=== PATIENT | male | born 1960 | race American Indian/Alaskan Native ===

== ENCOUNTER 2018-01-14 13:08 | Emergency (ER) | payer OTHER ==
[2018-01-14 14:00] LABS: Basophils # (Auto) 0.1 K/mm3 (0.0-0.1); Basophils % (Auto) 1.2 % (0.0-1.8); Eosinophils # (Auto) 0.3 K/mm3 (0.0-0.4); Eosinophils % (Auto) 4.9 % (0.0-4.3); Hemoglobin 12.3 gm/dl (11.8-15.2); Lymphocytes # (Auto) 2.5 K/mm3 (1.2-5.4); Lymphocytes % (Auto) 37.2 % (13.4-35.0); Mean Corpuscular HGB Conc 32 % (32-34); Mean Corpuscular Volume 74 fl (84-94); Monocytes # (Auto) 0.5 K/mm3 (0.0-0.8); Monocytes % (Auto) 7.4 % (0.0-7.3); Platelet Count 203 K/mm3 (140-440); Red Blood Count 5.27 M/mm3 (3.65-5.03); Red Cell Distribution Width 14.8 % (13.2-15.2)
[2018-01-14 14:02] LABS: Mean Corpuscular Hemoglobin 23 pg (28-32)
--- NOTE | 2018-01-14 14:04 | Cat Scan Report ---
FINAL REPORT EXAM: CT HEAD/BRAIN WO CON HISTORY: HTN, slurred speech and weakness there is a sub appended mole hyper density at the left lateral aspect of the 3rd ventricle TECHNIQUE: CT of the head was performed. No intravenous contrast was administered. PRIORS: None. FINDINGS: There is an 8 mm hyperdensity in the subependymal medial margin of the left thalamus. This is concerning for a focal small hemorrhage. There is an old lacunar infarct in left of midline arthur. There is no edema, mass effect or midline shift. There are no abnormal extra-axial fluid collections. There is no ventricular enlargement seen. There is no skull fracture seen. The visualized aspects of the sinuses are clear. IMPRESSION: Findings are suspicious for an 8 mm hemorrhage in the subependymal medial margin of left thalamus.
[2018-01-14 14:11] LABS: INR 0.9 (0.87-1.13)
[2018-01-14 14:12] LABS: Partial Thromboplastin Time 25.6 Sec. (24.2-36.6)
[2018-01-14 14:27] LABS: BUN/Creatinine Ratio 14; Blood Urea Nitrogen 11 mg/dL (9-20); Calcium 8.9 mg/dL (8.4-10.2); Hemolysis Index 51
--- NOTE | 2018-01-14 15:29 | Emergency Department Report ---
ED Neuro Deficit HPI - General Chief Complaint: Neuro Symptoms/Deficit Stated Complaint: HIGH BLOOD PRESSURE Time Seen by Provider: 01/14/18 13:44 Source: patient, family, old records reviewed Mode of arrival: Ambulatory Limitations: No Limitations - History of Present Illness Initial Comments: Mr. Castro is a 57-year-old male with history of [id number] diabetes and hypertension who presents with stroke symptoms for the past 2 weeks. He's had slurred speech and difficulty finding words. Denies paralysis. Denies sensory abnormalities. Denies difficulty with ambulation. His current physician Dr. Fuentes obtained outpatient MRI on 12/26/1727 which showed evidence of acute infarct in the posterior limb of the left internal capsule. Due to persistently elevated blood pressure, his urged him to see his primary care physician today. Dr. Fuentes referred patient to the ER for persistent stroke symptoms and abnormal MRI. -: Sudden, week(s) (2) Location: dysarthria History of same: No Severity: mild Improves With: none Worsens With: none Context: sudden onset Associated Symptoms: other (difficulty finding words) - Related Data Allergies/Adverse Reactions: Allergies Allergy/AdvReac Type Severity Reaction Status Date / Time No Known Allergies Allergy Unverified 01/14/18 13:17 ED Review of Systems ROS: Stated complaint: HIGH BLOOD PRESSURE Other details as noted in HPI Comment: All other systems reviewed and negative Constitutional: denies: fever, malaise Respiratory: denies: cough Cardiovascular: denies: chest pain, palpitations ED Past Medical Hx - Past Medical History Hx Hypertension: Yes Hx Diabetes: Yes - Social History Smoking Status: Never Smoker Substance Use Type: Prescribed Other Social History: , is bedside, 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 Absent: scleral icterus, conjunctival injection - ENT ENT exam: Present: mucous membranes moist - Neck Neck exam: Present: normal inspection. Absent: tenderness, meningismus - Respiratory Respiratory exam: Present: normal lung sounds bilaterally. Absent: respiratory distress, wheezes, rales, rhonchi - Cardiovascular Cardiovascular Exam: Present: regular rate, normal rhythm, normal heart sounds. Absent: systolic murmur, diastolic murmur, rubs, gallop - GI/Abdominal GI/Abdominal exam: Present: soft, normal bowel sounds. Absent: distended, tenderness, guarding, rebound - Rectal Rectal exam: Present: deferred - Extremities Exam Extremities exam: Present: normal capillary refill, pedal edema - Back Exam Back exam: Present: normal inspection - Neurological Exam Neurological exam: Present: alert, oriented X3 - NIHSS Assessment Interval: Baseline 1a. Level of Consciousness: alert 1b. LOC Questions: answers correctly 1c. LOC Commands: performs tasks correctly 2. Best Gaze: normal 3. Visual: no visual loss 4. Facial Palsy: normal symmetrical movement 5b. Motor Arm Right: no drift 5a. Motor Arm Left: no drift 6a. Motor Leg Left: no drift 6b. Motor Leg Right: no drift 7. Limb Ataxia: absent 8. Sensory: normal 9. Best Language: no aphasia 10. Dysarthria: mild/moderate dysarthria 11. Extinction/Inattention: no abnormality Total Score: 1 Stroke Severity: Minor Stroke - Psychiatric Psychiatric exam: Present: normal affect, normal mood - Skin Skin exam: Present: warm, dry, intact, other (venous stasis changes in lower extremity with bilateral lower extremity edema). Absent: rash ED Course Vital Signs 01/14/18 13:17 Temperature 98 F Pulse Rate 67 Respiratory 18 Rate Blood Pressure 177/100 Blood Pressure 177/100 [Right] O2 Sat by Pulse 99 Oximetry - Lab Data Result diagrams: 01/14/18 13:46 01/14/18 13:46 Lab Results 01/14/18 01/14/18 01/14/18 Range/Units 13:46 13:46 13:46 WBC 6.7 (4.5-11.0) K/mm3 RBC 5.27 H (3.65-5.03) M/mm3 Hgb 12.3 (11.8-15.2) gm/dl Hct 39.0 (35.5-45.6) % MCV 74 L (84-94) fl MCH 23 L (28-32) pg MCHC 32 (32-34) % RDW 14.8 (13.2-15.2) % Plt Count 203 (140-440) K/mm3 Lymph % (Auto) 37.2 H (13.4-35.0) % [place] % (Auto) 7.4 H (0.0-7.3) % Eos % (Auto) 4.9 H (0.0-4.3) % Baso % (Auto) 1.2 (0.0-1.8) % Lymph # 2.5 (1.2-5.4) K/mm3 [place] # 0.5 (0.0-0.8) K/mm3 Eos # 0.3 (0.0-0.4) K/mm3 Baso # 0.1 (0.0-0.1) K/mm3 Seg Neutrophils % 49.3 (40.0-70.0) % Seg Neutrophils # 3.3 (1.8-7.7) K/mm3 PT 12.6 (12.2-14.9) Sec. INR 0.90 (0.87-1.13) APTT 25.6 (24.2-36.6) Sec. Thrombin Time (15.1-19.6) Sec. Sodium 138 (137-145) mmol/L Potassium 3.4 L (3.6-5.0) mmol/L Chloride 96.1 L (98-107) mmol/L Carbon Dioxide 26 (22-30) mmol/L Anion Gap 19 mmol/L BUN 11 (9-20) mg/dL Creatinine 0.8 (0.8-1.5) mg/dL Estimated GFR > 60 ml/min BUN/Creatinine Ratio 14 % Glucose 194 H (75-100) mg/dL Calcium 8.9 (8.4-10.2) mg/dL Troponin T < 0.010 (0.00-0.029) ng/mL 01/14/18 Range/Units 13:46 WBC (4.5-11.0) K/mm3 RBC (3.65-5.03) M/mm3 Hgb (11.8-15.2) gm/dl Hct (35.5-45.6) % MCV (84-94) fl MCH (28-32) pg MCHC (32-34) % RDW (13.2-15.2) % Plt Count (140-440) K/mm3 Lymph % (Auto) (13.4-35.0) % [place] % (Auto) (0.0-7.3) % Eos % (Auto) (0.0-4.3) % Baso % (Auto) (0.0-1.8) % Lymph # (1.2-5.4) K/mm3 [place] # (0.0-0.8) K/mm3 Eos # (0.0-0.4) K/mm3 Baso # (0.0-0.1) K/mm3 Seg Neutrophils % (40.0-70.0) % Seg Neutrophils # (1.8-7.7) K/mm3 PT (12.2-14.9) Sec. INR (0.87-1.13) APTT (24.2-36.6) Sec. Thrombin Time 17.1 (15.1-19.6) Sec. Sodium (137-145) mmol/L Potassium (3.6-5.0) mmol/L Chloride (98-107) mmol/L Carbon Dioxide (22-30) mmol/L Anion Gap mmol/L BUN (9-20) mg/dL Creatinine (0.8-1.5) mg/dL Estimated GFR ml/min BUN/Creatinine Ratio % Glucose (75-100) mg/dL Calcium (8.4-10.2) mg/dL Troponin T (0.00-0.029) ng/mL - EKG Data EKG shows normal: sinus rhythm, axis, intervals, QRS complexes Interpretation: LVH 01/14/18 15:30 EKG obtained at 1328 Normal sinus rhythm premature atrial contraction present rate 60 beats a minute normal axis and prolonged NC interval 01/14/18 15:33 - Radiology Data Radiology results: report reviewed 8 mm intraparenchymal hemorrhage at the left thalamus - Medical Decision Making Mr. Castro presents with 2 weeks of speech difficulty, dysarthria and aphasia. MRI confirmed acute infarct at left internal capsule. Today, hemorrhagic conversion seen on CT of head. Dr. Navarro neurointensivist accepted patient to 31 ICU at [facility]. Dr. Navarro recommended to maintain SBP 160-180 mm Hg. I spoke extensively with and patient. mobile [phone] - Thrombolytic Inclusion/Exclusion Thrombolytic Exclusion Criteria: Symptom Onset > 3 Hours Thrombolytic Contraindications: Hx of ICH/AVM/Aneurysms Critical Care Time: Yes Critical care time in (mins) excluding proc time.: 40 Critical care attestation.: If time is entered above; I have spent that time in minutes in the direct care of this critically ill patient, excluding procedure time. ED Disposition Clinical Impression: Hemorrhagic cerebrovascular accident (CVA) Disposition: DC/TX-70 ANOTHER TYPE HLTHCARE Is pt being admited?: No Does the pt Need Aspirin: No Condition: Stable Referrals: PRIMARY CARE,MD [Primary Care Provider] - 3-5 Days Time of Disposition: 15:00
[2018-01-14 16:49] VITALS: BP 171/97
== END 2018-01-14 17:15 | disposition other institution (70) ==
LOC: ED 13:08
DX: I63.9 Cerebral infarction, unspecified (principal); I10 Essential (primary) hypertension; E11.9 Type 2 diabetes mellitus without complications
CPT/HCPCS: 36415; 70450; 80048; 84484; 85025; 85610; 85670; 85730; 93005; 93010

== ENCOUNTER 2018-02-23 11:17 | Emergency (ER) | payer OTHER ==
[2018-02-23 11:34] VITALS: BP 138/87
--- NOTE | 2018-02-23 12:05 | Emergency Department Report ---
ED Medical Clearance HPI - General Chief complaint: Medical Clearance Stated complaint: REFILL MEDICATION Time Seen by Provider: 02/23/18 11:56 Source: patient, RN notes reviewed Mode of arrival: Ambulatory Limitations: No Limitations - History of Present Illness Initial comments: This is a 57-year-old gentleman who presents to the ER with a request for medication refill. Please see triage documentation as to which medications the patient requested to have refilled. He indicates he is going to follow-up with his outpatient neurologist/primary care doctor within the next week. He denies all complaints at this time. MD Complaint: other Alledged Intoxication: No Compliant with Home Medications: Yes Traumatic Symptoms: denies traumatic injury Associated Symptoms: denies: chest pain, shortness of breath, palpitations, diaphoresis, confusion, cough, fever/chills, headaches, anorexia, malaise, nausea/vomiting, rash, seizure, syncope, weakness Home medications: Previous Rx's Medication Instructions Recorded Last Taken Type Atorvastatin [Lipitor] 80 mg PO QHS #30 tab 02/23/18 Unknown Rx Chlorthalidone 50 mg PO QDAY #30 tablet 02/23/18 Unknown Rx Potassium Chloride 20 meq PO BID #28 packet 02/23/18 Unknown Rx Allergies/Adverse reactions: Allergies Allergy/AdvReac Type Severity Reaction Status Date / Time No Known Allergies Allergy Unverified 01/14/18 13:17 ED Review of Systems ROS: Stated complaint: REFILL MEDICATION Other details as noted in HPI Comment: All other systems reviewed and negative ED Past Medical Hx - Past Medical History Hx Hypertension: Yes Hx Diabetes: Yes - Social History Smoking Status: Never Smoker Substance Use Type: None - Medications Home Medications: Home Medications Medication Instructions Recorded Confirmed Last Taken Type Atorvastatin [Lipitor] 80 mg PO QHS #30 tab 02/23/18 Unknown Rx Chlorthalidone 50 mg PO QDAY #30 tablet 02/23/18 Unknown Rx Potassium Chloride 20 meq PO BID #28 packet 02/23/18 Unknown Rx ED Physical Exam - General Limitations: No Limitations General appearance: alert, in no apparent distress - Head Head exam: Present: atraumatic, normocephalic - Eye Eye exam: Present: normal appearance, EOMI. Absent: nystagmus - ENT ENT exam: Present: normal exam, normal orophraynx, mucous membranes moist - Neck Neck exam: Present: normal inspection, full ROM. Absent: tenderness, meningismus - Respiratory Respiratory exam: Present: normal lung sounds bilaterally. Absent: respiratory distress - Cardiovascular Cardiovascular Exam: Present: regular rate, normal rhythm, normal heart sounds. Absent: bradycardia, tachycardia, irregular rhythm, systolic murmur, diastolic murmur, rubs, gallop - GI/Abdominal GI/Abdominal exam: Present: soft, normal bowel sounds. Absent: distended, tenderness, guarding, rebound, rigid, pulsatile mass - Rectal Rectal exam: Present: deferred - Extremities Exam Extremities exam: Present: normal inspection, full ROM - Back Exam Back exam: Present: normal inspection, full ROM. Absent: CVA tenderness (R), paraspinal tenderness, vertebral tenderness - Neurological Exam Neurological exam: Present: alert (residual slurred speech from stroke earlier on last month), oriented X3, other (Extraocular movements intact. Tongue midline. No facial droop. Facial sensation intact to light touch in the V1, V2 , V3 distribution bilaterally. 5 and 5 strength in 4 extremities.. Sensation is intact to light touch in 4 extremities.). Absent: motor sensory deficit - Psychiatric Psychiatric exam: Present: normal affect, normal mood - Skin Skin exam: Present: warm, dry, intact ED Course Vital Signs 02/23/18 11:29 Temperature 98.2 F Pulse Rate 76 Respiratory 16 Rate Blood Pressure 138/87 O2 Sat by Pulse 99 Oximetry ED Medical Decision Making - Lab Data Vital Signs 02/23/18 11:29 Temperature 98.2 F Pulse Rate 76 Respiratory 16 Rate Blood Pressure 138/87 O2 Sat by Pulse 99 Oximetry - Medical Decision Making Differential diagnosis, including not limited to: Medication refill, history of stroke Assessment and plan: 57-year-old gentleman who has no complaints, who reports being discharged from the hospital a few weeks ago for stroke with some residual dysarthria, who requests a medication refill. He is going to follow up with neurology next week. He has no complaints at this time. His medications will be refilled. He will be discharged at this time ED Disposition Clinical Impression: Medication refill Disposition: DC-01 TO HOME OR SELFCARE Is pt being admited?: No Does the pt Need Aspirin: No Condition: Stable Instructions: Self Care Measures After a Stroke (ED) Additional Instructions: Take the medications as directed. Follow up with a primary care doctor or neurology specialist within the next week as recommended. Side effects of the atorvastatin includes muscle cramps and liver injury. The addition, the patient 's potassium has been refilled for 2 weeks, but should have a reevaluation by either her primary care doctor or neurology specialist to determine long-term necessity of this medication. Return to the ER right away with new pain, worsened pain, migration of pain, fevers, chills, confusion, inability to tolerate liquid feeds. On the other 2 medications, the patient was given a one-month prescription, with an additional refill. Prescriptions: Atorvastatin [Lipitor] 80 mg PO QHS #30 tab Chlorthalidone 50 mg PO QDAY #30 tablet Potassium Chloride 20 meq PO BID #28 packet Referrals: ALBERT AVENDAÑO MD [Referring] - 3-5 Days MEHDI MUHAMMAD MD [Staff Physician] - 3-5 Days MEGHA GAMEZ MD [Staff Physician] - 3-5 Days [facility] [Provider Group] - 3-5 Days
== END 2018-02-23 12:05 | disposition home or self-care (01) ==
LOC: ED 11:17
DX: I63.9 Cerebral infarction, unspecified (principal); Z76.0 Encounter for issue of repeat prescription; I10 Essential (primary) hypertension; E11.9 Type 2 diabetes mellitus without complications
CPT/HCPCS: 99282

== ENCOUNTER 2018-09-05 10:32 | Emergency (ER) | payer OTHER ==
--- NOTE | 2018-09-05 11:28 | Emergency Department Report ---
Blank Doc - Documentation Documentation: This is a 58-year-old male that presents with constipation x2 weeks. Stated u nable to have a bowel movement since then. Denies any abdominal pain. Stated pain is in the anus region. This initial assessment diagnostic orders/clinical plan/treatment(s) is/are subject to change based on patient's health status, clinical progression and re- assessment by fellow clinical providers in the ED. Further treatment and workup at subsequent clinical providers discretion. Patient/guardians urged not to elope from ED s their condition may be serious if not clinically assessed and managed. Initial orders include: 1-Patient sent to [facility] for further evaluation and treatment 2- Labs 3- XR abd
--- NOTE | 2018-09-05 11:51 | XRay Report ---
ABDOMINAL SERIES: History: Constipation. Supine and upright views of the abdomen and frontal view of the chest are submitted. There is gas mixed with moderate stool throughout the colon. There are no dilated loops of bowel or air-fluid levels. There is no free intraperitoneal gas. The lungs are clear. IMPRESSION: Fecal retention.
[2018-09-05] MEDS ORDERED: CITRATE OF MAGNESIA PO ONE (12:15)
[2018-09-05] MEDS ORDERED: FLEET MINERAL OIL PR ONE (12:15)
--- NOTE | 2018-09-05 12:17 | Emergency Department Report ---
ED Abdominal Pain HPI - General Chief Complaint: Abdominal Pain Stated Complaint: CONSTIPATION Time Seen by Provider: 09/05/18 11:26 Source: patient Mode of arrival: Ambulatory Limitations: No Limitations - History of Present Illness Initial Comments: Pt is a 58 yo AA male who comes to the ER co no BM in 2 weeks. Pt is eating a snickers bar as I enter the room. He has no abd pain. He has no nausea or vomiting. VSS Poor informant Daughter coming to get patient. -: Gradual, week(s) Migration to: no migration Severity scale (0 -10): 8 Improves With: nothing Worsens With: nothing Associated Symptoms: denies other symptoms - Related Data Previous Rx's Medication Instructions Recorded Last Taken Type Docusate Sodium [Colace] 100 mg PO BID #60 capsule 09/05/18 Unknown Rx Allergies Allergy/AdvReac Type Severity Reaction Status Date / Time No Known Allergies Allergy Verified 09/05/18 10:40 ED Review of Systems ROS: Stated complaint: CONSTIPATION Other details as noted in HPI Comment: All other systems reviewed and negative Constitutional: denies: chills Eyes: denies: eye pain ENT: denies: ear pain Respiratory: denies: cough Cardiovascular: denies: chest pain, orthopnea Endocrine: denies: excessive sweating Gastrointestinal: as per HPI, constipation. denies: abdominal pain, nausea, vomiting, diarrhea, hematemesis Genitourinary: denies: urgency, dysuria Musculoskeletal: denies: back pain Skin: denies: rash Neurological: denies: as per HPI Psychiatric: denies: as per HPI, anxiety ED Past Medical Hx - Past Medical History Previous Medical History?: Yes Hx Hypertension: Yes Hx CVA: Yes Hx Heart Attack/AMI: No Hx Congestive Heart Failure: No Hx Diabetes: Yes - Family History Family history: no significant - Social History Smoking Status: Never Smoker Substance Use Type: None - Medications Home Medications: Home Medications Medication Instructions Recorded Confirmed Last Taken Type Docusate Sodium [Colace] 100 mg PO BID #60 capsule 09/05/18 Unknown Rx ED Physical Exam - General Limitations: No Limitations General appearance: alert, in no apparent distress - Head Head exam: Present: atraumatic - Eye Eye exam: Present: normal appearance, PERRL - ENT ENT exam: Present: mucous membranes moist - Neck Neck exam: Present: normal inspection - Respiratory Respiratory exam: Present: normal lung sounds bilaterally - Cardiovascular Cardiovascular Exam: Present: regular rate - GI/Abdominal GI/Abdominal exam: Present: soft, normal bowel sounds. Absent: distended, tenderness, guarding, rebound, rigid, diminished bowel sounds, hyperactive bowel sounds, hypoactive bowel sounds, organomegaly, mass, bruit, pulsatile mass, hernia - Rectal Rectal exam: Present: deferred - Extremities Exam Extremities exam: Present: normal inspection, full ROM - Back Exam Back exam: Present: normal inspection, full ROM - Neurological Exam Neurological exam: Present: alert, oriented X3, normal gait - Psychiatric Psychiatric exam: Present: normal affect, normal mood - Skin Skin exam: Present: warm, dry, intact ED Course Vital Signs 09/05/18 11:26 Temperature 98.6 F Pulse Rate 79 Respiratory 18 Rate Blood Pressure 145/82 O2 Sat by Pulse 99 Oximetry - Reevaluation(s) Reevaluation #1: 09/05/18 13:31 pt denies pain meds ED Medical Decision Making - Lab Data Result diagrams: 09/05/18 12:31 09/05/18 12:31 - Radiology Data Radiology results: report reviewed, image reviewed constipation - Medical Decision Making pt is eating a snickers bar on initial exam xray noted pt given enema and mg citrate discussed high fiber diet and hydration with pt will dc home on colace and recommended dietary changes ambulatory VSS NAD Labs 09/05/18 09/05/18 12:31 12:31 WBC 6.0 RBC 4.62 Hgb 10.5 L Hct 32.4 L MCV 70 L MCH 23 L MCHC 33 RDW 19.0 H Plt Count 267 Lymph % (Auto) 21.2 [place] % (Auto) 7.2 Eos % (Auto) 1.0 Baso % (Auto) 1.0 Lymph # 1.3 [place] # 0.4 Eos # 0.1 Baso # 0.1 Seg Neutrophils % 69.6 Seg Neutrophils # 4.2 Sodium 138 Potassium 4.2 Chloride 97.0 L Carbon Dioxide 27 Anion Gap 18 BUN 20 Creatinine 1.1 Estimated GFR > 60 BUN/Creatinine Ratio 18 Glucose 132 H Calcium 10.0 Total Bilirubin 0.40 AST 12 ALT 12 Alkaline Phosphatase 51 Total Protein 8.3 H Albumin 4.4 Albumin/Globulin Ratio 1.1 Critical care attestation.: If time is entered above; I have spent that time in minutes in the direct care of this critically ill patient, excluding procedure time. ED Disposition Clinical Impression: Constipation Disposition: DC-01 TO HOME OR SELFCARE Is pt being admited?: No Does the pt Need Aspirin: No Condition: Stable Instructions: Constipation (ED), High Fiber Diet (ED) Additional Instructions: hydrate well with water high fiber diet avoid junk food and foods that tend to constipate you. continue home meds activity as tolerated med as ordered today over the counter miralax may help when constipated Prescriptions: Docusate Sodium [Colace] 100 mg PO BID #60 capsule Referrals: SOILA ALLEN [Primary Care Provider] - 3-5 Days Time of Disposition: 13:14
[2018-09-05 12:50] LABS: Basophils # (Auto) 0.1 K/mm3 (0.0-0.1); Eosinophils # (Auto) 0.1 K/mm3 (0.0-0.4); Hematocrit 32.4 % (35.5-45.6); Hemoglobin 10.5 gm/dl (11.8-15.2); Lymphocytes # (Auto) 1.3 K/mm3 (1.2-5.4); Lymphocytes % (Auto) 21.2 % (13.4-35.0); Mean Corpuscular HGB Conc 33 % (32-34); Mean Corpuscular Volume 70 fl (84-94); Monocytes # (Auto) 0.4 K/mm3 (0.0-0.8); Monocytes % (Auto) 7.2 % (0.0-7.3); Platelet Count 267 K/mm3 (140-440); Red Blood Count 4.62 M/mm3 (3.65-5.03)
[2018-09-05 13:07] LABS: Alanine Aminotransferase 12 units/L (7-56); Albumin 4.4 g/dL (3.9-5); BUN/Creatinine Ratio 18; Blood Urea Nitrogen 20 mg/dL (9-20); Hemolysis Index 2
[2018-09-05 14:20] VITALS: BP 136/76
== END 2018-09-05 13:32 | disposition home or self-care (01) ==
LOC: ED 10:32
DX: K59.00 Constipation, unspecified (principal); I10 Essential (primary) hypertension; E11.9 Type 2 diabetes mellitus without complications; Z86.73 Personal history of transient ischemic attack (TIA), and cerebral infarction without residual deficits
CPT/HCPCS: 36415; 74022; 80053; 85025

== ENCOUNTER 2019-01-06 14:34 | Outpatient (CLI) | payer OTHER ==
--- NOTE | 2019-01-06 15:46 | Vascular Lab Report ---
PROCEDURE: US BILATERAL LOWER EXTREMITY VENOUS DUPLEX DOPPLER TECHNIQUE: Duplex Doppler ultrasound of the BILATERAL common and superficial femoral, popliteal, pos terior tibial and proximal deep femoral and greater saphenous veins was attempted. Mendez scale imaging with and without compression, spectral waveform analysis with and without augmentation, and color fl ow Doppler were employed. CPT 55680 HISTORY: Lower extremity swelling COMPARISONS: None . FINDINGS: RIGHT LOWER EXTREMITY: Deep Venous Thrombus: None . Superficial Venous Thrombus: None . Venous valvular incompetence: None . Soft tissue abnormality: Mild subcutaneous edema visualized. . Nonspecific benign-appearing lymph no robi seen in the right groin with fat density centers. Other: None . LEFT LOWER EXTREMITY: Deep Venous Thrombus: None . Superficial Venous Thrombus: None . Venous valvular incompetence: None . Soft tissue abnormality: Mild subcutaneous edema visualized. . Other: None . IMPRESSION: No evidence of deep venous thrombosis . Mild subcutaneous edema visualized. This document is electronically signed by Albert Ramos MD., January 06 2019 03:43:34 PM ET
== END 2019-01-06 14:35 | disposition home or self-care (01) ==
LOC: VAS 14:34
PROVIDERS: ATTEND Family Medicine
DX: R22.43 Localized swelling, mass and lump, lower limb, bilateral (principal); I10 Essential (primary) hypertension
CPT/HCPCS: 93970